=== PATIENT | female | born 1940 | race Caucasian/White ===

== ENCOUNTER 2019-09-13 21:39 | Observation (INO) | payer MEDICARE, SELFPAY ==
--- NOTE | ~2019-09-13 | MR_ITS ---
EXAMINATION: MR brain/brain stem wo/w con DATE: 09/14/2019 13:57 INDICATION: Ataxia. TECHNIQUE: Magnetic resonance imaging (MRI) of the brain and brainstem was performed without and with 18 mL MultiHance intravenous contrast. Sequences included sagittal and axial T1-weighted FSE, axial diffusion-weighted FS EPI, axial T2*-weighted GRE, axial T2-weighted FLAIR Propeller, and axial T2-we ighted Propeller. Postcontrast sequences included axial, sagittal, and coronal T1-weighted FSE. Appar ent diffusion coefficient (ADC) maps were created. COMPARISON: None. FINDINGS: There is an empty sella. There are scattered areas of nonspecific increased T2-weighted s ignal intensity in the cerebral white matter. There is no intracranial hemorrhage or acute ischemic i nfarct. Inferior to right frontal lobe, there is a 10 mm enhancing extra-axial mass. The ventricles a re normal in size. There is mild mucosal thickening in the ethmoid sinuses. The orbits are normal. Th e mastoid air cells are normal. IMPRESSION: 1. 10 mm enhancing extra-axial mass inferior to right frontal lobe, consistent with a meningioma. 2. Moderate nonspecific cerebral white matter disease, which likely represents chronic small vessel i schemic disease. Reviewed, dictated and finalized at location E. IMPRESSION: 1. 10 mm enhancing extra-axial mass inferior to right frontal lobe, consistent with a meningioma. 2. Moderate nonspecific cerebral white matter disease, which likely represents chronic small vessel ischemic disease.
--- NOTE | ~2019-09-13 | CT_ITS ---
EXAMINATION: CTA brain carotid DATE: 09/14/2019 19:16 INDICATION: Ataxia. TECHNIQUE: Computed tomographic angiography (CTA) of the head was performed without and with 100 mL O mnipaque-350 intravenous contrast. CTA of the neck was performed with intravenous contrast. Automated exposure control and iterative reconstruction technique were employed. The dose-length product was 1 715.03 mGy-cm. Maximum intensity projection and volume rendered 3D-reconstructions were created by kwasi beckwith technologist on a separate workstation. COMPARISON: Brain MRI 09/14/2019 FINDINGS: HEAD CTA: There are scattered areas of low attenuation in the cerebral white matter. There is a 10 mm hyperdense extra-axial mass inferior to right frontal lobe. There is no acute ischemic infarct or in tracranial hemorrhage. The ventricles are normal in size. The orbits are normal. There is mild mucosa l thickening in the paranasal sinuses. The mastoid air cells are normal. Right vertebral artery is do minant. There is no significant stenosis of basilar artery or posterior cerebral arteries. There is n o significant stenosis of the intracranial internal carotid arteries or anterior or middle cerebral a rteries. Anterior communicating artery is normal. The posterior communicating arteries are normal. Th ere is no aneurysm. NECK CTA: There is mild scarring at the lung apices. The lungs demonstrate mosaic attenuation, likely small airways disease. There are no pathologically enlarged lymph nodes. There is no significant [place] nosis of the vertebral arteries. There is plaque in the proximal internal carotid arteries. There is 0% stenosis of the proximal right internal carotid artery relative to normal distal artery lumen diam eter (NASCET criteria). There is 4% stenosis of the proximal left internal carotid artery relative to normal distal artery lumen diameter. There is moderate cervical spondylosis. IMPRESSION: 1. 10 mm extra-axial mass inferior to right frontal lobe, consistent with a meningioma. 2. Mild nonspecific cerebral white matter disease, which likely represents chronic small vessel ische amina disease. 3. 0% stenosis of the proximal right internal carotid artery relative to normal distal artery lumen d iameter (NASCET criteria). 4. 4% stenosis of the proximal left internal carotid artery relative to normal distal artery lumen di ameter. Reviewed, dictated and finalized at location A. IMPRESSION: 1. 10 mm extra-axial mass inferior to right frontal lobe, consistent with a men ingioma. 2. Mild nonspecific cerebral white matter disease, which likely represents clinical engineer keke small vessel ischemic disease. 3. 0% stenosis of the proximal right internal carotid artery relative to normal distal artery lumen diameter (NASCET criteria). 4. 4% stenosis of the proximal left internal carotid artery relative to normal distal artery lumen diameter.
--- NOTE | ~2019-09-13 | US_ITS ---
EXAMINATION: US carotid duplex BI DATE: 09/14/2019 10:58 INDICATION: Ataxia. TECHNIQUE: Grayscale, color Doppler, and pulsed Doppler images of the cervical carotid arteries were obtained. The degree of vessel stenosis is placed in one of the following categories: normal, <50%, 5 0-69%, >=70% but less than near-occlusion, near-occlusion, or total occlusion. Note that percent sten osis relative to normal distal artery lumen diameter is indirectly measured from velocity measurement s as described by Washington, et al. Radiology 2003; 229:340-346. COMPARISON: None. FINDINGS: RIGHT: The right common carotid artery (CCA) peak systolic velocity (PSV) is 72 cm/s. The right internal car otid artery (ICA) PSV is 76 cm/s. The right ICA end-diastolic velocity (EDV) is 26 cm/s. The right IC A/CCA PSV ratio is 1.1. Grayscale and color Doppler images yield an estimate of <50% diameter reducti on from plaque in the ICA. There is antegrade flow in the right vertebral artery. LEFT: The left CCA PSV is 85 cm/s. The left ICA PSV is 75 cm/s. The left ICA EDV is 26 cm/s. The left ICA/C CA PSV ratio is 0.9. Grayscale and color Doppler images yield an estimate of <50% diameter reduction from plaque in the ICA. There is antegrade flow in the left vertebral artery. IMPRESSION: 1. <50% stenosis in the right internal carotid artery. 2. <50% stenosis in the left internal carotid artery. Reviewed, dictated and finalized at location E.
--- NOTE | 2019-09-13 21:55 | ADMGEN ---
This patient, Leia Patel, was admitted to 2 Medical Room 243-01 direct admit from [facility] arrived at 2130. Patient/family oriented to hospital policies and general routines including ID bracelet, bed and alarms, visiting hours, pain management, procedures, bathroom and other care routines, personal items, smoking policy, room service/diet, and visiting hours. Valuables list has been completed. Information on how to activate the Rapid Response Team has been discussed. Patient/Family are encouraged to report perceived risks to care and to ask questions if they do not understand what they are told or what they should do.
[2019-09-13 22:00] VITALS: BP 153/74; PULSE 73; RESP 16; TEMP 36.2; O2SAT 94
[2019-09-13 22:12] VITALS: BMI 31.8
[2019-09-13 22:36] VITALS: PULSE 68
[2019-09-13] MEDS: SODIUM CHLORIDE 0.9% IV 1,000 ML 100 ML IV CONT (23:46)
[2019-09-14] VITALS (11 sets, daily range): BP systolic 122–142; BP diastolic 63–77; PULSE 63–74; RESP 16–18; TEMP 36–36.6; O2SAT 94–96
[2019-09-14] MEDS: ACETAMINOPHEN 325 MG TABLET 650 MG PO ×2 (02:17→20:54)
[2019-09-14] MEDS: LEVOTHYROXINE SODIUM 50 MCG TABLET PO (05:38)
[2019-09-14 08:24] LABS: Chloride 105 mmol/L (98-107)
[2019-09-14] MEDS: PANTOPRAZOLE 40 MG TABLET PO ×2 (08:46→16:34)
[2019-09-14] MEDS: OMEGA 3 POLYUNSAT FATTY ACIDS 1 GM CAP PO ×2 (08:46→16:34)
[2019-09-14] MEDS: ATORVASTATIN 20 MG TABLET PO (08:46)
[2019-09-14] MEDS: CHOLECALCIFEROL 1,000 UNIT TABLET 1000 UNITS PO (08:46)
[2019-09-14] MEDS: levETIRAcetam 500 MG TABLET PO (08:46)
--- NOTE | 2019-09-14 08:46 | PM.IMHP ---
H&P: HPI History of Present Illness Chief complaint: Ataxia Narrative: Leia Patel is a 78 year old right-handed female with HLD and seizures here for ataxia. Patient noted her symptoms yesterday morning. Patient was sitting in the chair around 930 in the morning when she noted ataxia when she stood to walk to the bathroom. She states that she was leaning to the right when she was walking to bathroom. She thought she was dehydrated. She did cut the grass the day before. She is also recent diagnosed with the UTI is been on Bactrim for the past 4 days. There has been no other new medications otherwise. She called her family brought her some electrolytes. After consuming the electrolytes, there was no change in her symptoms at which point she presented to the emergency room at outside hospital for evaluation. She denies headaches, vision changes, odynophagia, dysphagia, chest pain, palpitations, shortness of breath, or cough. She does not take aspirin at home. Patient does have sinus symptoms frequently but has not been on any recent sinus medications. She also has been having loose stools due to frequent antibiotics for her UTI and for her recent oral surgery but the loose stools have resolved. No melena, hematochezia. Patient does state that she has chronic left lower extremity weakness due to her hip surgery. In the emergency room, patient was hemodynamically stable. Creatinine was slightly elevated at 1.28 which is above her baseline otherwise lab values were normal. Urinalysis was clear. Troponin x1 was negative. CT of the brain showing no acute findings. Patient was sent to our facility for further evaluation. Review of Systems Review of Systems: All systems reviewed & are unremarkable except as noted in HPI and below PMFSH Past Medical History Medical History Cataract Colon cancer Surgical removal of pre-cancerous lesion; no chemo or XRT GERD (gastroesophageal reflux disease) History of peptic ulcer disease Hyperlipidemia Hypothyroidism Osteoarthritis Seizure Surgical History Surgical History History of bowel resection History of left hip replacement Hx of cholecystectomy Family History Family History Sibling Diabetes mellitus Sibling Hypertension Father Lung cancer COPD (chronic obstructive pulmonary disease) Other Family history of obesity Primary malignant neoplasm of aortic body Social History 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 Full code. She nominates Kristy her daughter to be the individual who would make medical decisions for her if she is unable. Smoking status: Never smoker Alcohol intake: never Substance use: never Substance use type: does not use Gender identity (if verbalized by the patient): Female Sexual Orientation (if Verbalized by the Patient): Straight or Heterosexual Spiritual care concerns: No Meds Home Medications and Allergies Home Medications Medication Instructions Recorded Confirmed Type atorvastatin 20 mg PO DAILY 09/13/19 09/13/19 History cholecalciferol (vitamin D3) 25 mcg PO DAILY 09/13/19 09/13/19 History icosapent ethyl [Vascepa] 1 g PO BID 09/13/19 09/13/19 History levetiracetam 500 mg PO DAILY 09/13/19 09/13/19 History levetiracetam 750 mg PO HS 09/13/19 09/13/19 History levothyroxine 50 mcg PO DAILY 09/13/19 09/13/19 History multivitamin [Daily Multi-Vitamin] 1 tablet PO DAILY 09/13/19 09/13/19 History pantoprazole 40 mg PO BID 09/13/19 09/13/19 History sulfamethoxazole-trimethoprim 80 - 160 tablet PO BID 09/13/19 09/13/19 History Allergies Allergy/AdvReac Type Severity Reaction Status Date / Time No Known Allergies Allergy Verified 09/13/19 22:04 Vital Sign
[2019-09-14] MEDS: ONDANSETRON INJ 4 MG/2 ML VIAL IV PUSH (08:49)
[2019-09-14] MEDS: SODIUM CHLORIDE 0.9% IV 1,000 ML 100 ML IV CONT ×3 (08:49→20:06)
[2019-09-14 09:11] LABS: Anion Gap 12.5 mmol/L (7-16); Blood Urea Nitrogen 15 mg/dL (7-17); Carbon Dioxide 25 mmol/L (22-30); Estimated CRCL calculation 44 ml/min; Estimated Glomerular Filt Rate 48; Glucose 108 mg/dL (65-105); Potassium 4.5 mmol/L (3.4-5.0); Sodium 138 mmol/L (137-145)
[2019-09-14 10:30] LABS: Cholesterol 162 mg/dL (0-200); HDL Direct 34 mg/dL; Triglycerides 366 mg/dL (<150)
[2019-09-14 10:41] LABS: LDL Cholesterol Direct 64 mg/dL
[2019-09-14] MEDS: ASPIRIN 81 MG CHEWABLE TABLET PO (10:56)
--- NOTE | 2019-09-14 15:22 | PCPTNOTE ---
patient walks 350' without device, assist, or LOB which required assist to recover...patient also changed direction 180 degrees... x 2 without LOB or any abnormal sensation...did not observe any ATAXIA with gait, transfers, or movement...patient will be d/c'd from PT
--- NOTE | 2019-09-14 17:04 | WPDNEURCNPN ---
Assessment and Plan Assessment and plan (1) Renal insufficiency: Code(s): N28.9 - Disorder of kidney and ureter, unspecified Status: Acute (2) Ataxia: Code(s): R27.0 - Ataxia, unspecified Status: Acute (3) Hyperlipidemia: Code(s): E78.5 - Hyperlipidemia, unspecified Status: Acute (4) Hypothyroidism: Code(s): E03.9 - Hypothyroidism, unspecified Status: Acute (5) Seizure: Code(s): R56.9 - Unspecified convulsions Status: Acute (6) GERD (gastroesophageal reflux disease): Code(s): K21.9 - Gastro-esophageal reflux disease without esophagitis Status: Acute Additional Plan to complete the workup I have order the echocardiogram with bubble study and also CTA of the brain however I see that she has renal dysfunction than and MRA of the brain and carotid can be performed to make sure we are not missing anything at the spinal continue the aspirin therapy Consult date: 09/14/19 Time Seen: 16:00 HPI: Leia Patel is a 78 year old female who was admitted because of rather sudden onset of ataxia dizziness lightheadedness which has almost resolved and she walked quite a bit without any assistance from the physical therapist she denies any headache nausea vomiting chest pain shortness of breath fever chills sore throat a brain MRI reveals meningioma which I am not sure responsible for patient's symptoms she says that she was dehydrated working outside for 2 hours 1 grass and then developed the ataxia The patient also has a history of having had seizures and is on Keppra however this was not a seizure and it is likely that the patient had seizures related to meningioma if she did have a meningioma at that time I do not have access to any previous MRI performed though Review of Systems Review of Systems: All systems reviewed & are unremarkable except as noted in HPI and below PMFSH Past Medical History Medical History Cataract Colon cancer Surgical removal of pre-cancerous lesion; no chemo or XRT GERD (gastroesophageal reflux disease) History of peptic ulcer disease Hyperlipidemia Hypothyroidism Osteoarthritis Seizure Surgical History Surgical History History of bowel resection History of left hip replacement Hx of cholecystectomy Family History Family History Sibling Diabetes mellitus Sibling Hypertension Father Lung cancer COPD (chronic obstructive pulmonary disease) Other Family history of obesity Primary malignant neoplasm of aortic body Social History 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 Full code. She nominates Kristy her daughter to be the individual who would make medical decisions for her if she is unable. Smoking status: Never smoker Alcohol intake: never Substance use: never Substance use type: does not use Gender identity (if verbalized by the patient): Female Sexual Orientation (if Verbalized by the Patient): Straight or Heterosexual Spiritual care concerns: No Meds Home Medications and Allergies Home Medications Medication Instructions Recorded Confirmed Type atorvastatin 20 mg PO DAILY 09/13/19 09/13/19 History cholecalciferol (vitamin D3) 25 mcg PO DAILY 09/13/19 09/13/19 History icosapent ethyl [Vascepa] 1 g PO BID 09/13/19 09/13/19 History levetiracetam 500 mg PO DAILY 09/13/19 09/13/19 History levetiracetam 750 mg PO HS 09/13/19 09/13/19 History levothyroxine 50 mcg PO DAILY 09/13/19 09/13/19 History multivitamin [Daily Multi-Vitamin] 1 tablet PO DAILY 09/13/19 09/13/19 History pantoprazole 40 mg PO BID 09/13/19 09/13/19 History sulfamethoxazole-trimethoprim 80 - 160 tablet PO BID 09/13/19 09/13/19 History Allergies Allergy/Adv
[2019-09-14] MEDS: levETIRAcetam 250 MG TABLET 750 MG PO (20:53)
[2019-09-14 21:03] LABS: Add Urine Microscopic? YES; Appearance Urine Clear (Clear); Bilirubin Urine Negative (Negative); Blood Urine Negative (Negative); Color Urine Colorless (Yellow); Glucose Urine UA Negative (Negative); Ketones Urine Negative (Negative); Leukocyte Esterase Ur Trace LEU/UL (Negative); Mucus Urine Rare /lpf; Nitrate Urine Negative (Negative); Protein Urine Negative (Negative); RBC Urine 0-2 /hpf (0-2); Specific Grav Ur 1.049 (1.001-1.035); Squamous Epithelial Cell Urine Few /hpf (Few); Urobilinogen Urine Negative mg/dL (<2.0)
[2019-09-15] VITALS (7 sets, daily range): BP systolic 108–125; BP diastolic 57–68; PULSE 59–72; RESP 15–17; TEMP 36.2–36.5; O2SAT 94–96
--- NOTE | 2019-09-15 | ECHO_ITS ---
Patient Info Name: Leia Patel Age: 78 years : 1940 Gender: Female Ht: 67 in Wt: 203 lbs BSA: 2.12 m2 HR: 68 bpm BP: 122 / 68 mmHg Heart Rhythm: Sinus Rhythm Technical Quality: Good Exam Date: 09/15/2019 11:44 AM Exam Location: [facility] Pulmonary Exam Room: 243 Patient Status: Inpatient Admit Date: 09/13/2019 Staff Ordering Physician: Jose Patel MD Banquet Coordinator: Shima Miramontes RDCS Attending Provider: Jermain Heredia MD Referring Physician: Amanda ARELLANO; Exam Type: CA echo doppler w bubble study Study Info Indications - tia Complete two-dimensional, color flow and Doppler transthoracic echocardiogram is performed. Contrast/Agitated Saline Contrast/Ag. Saline: Agitated Saline Amount: 20.00 ml Summary 1. Left ventricular systolic function is normal, estimated at 55-60%. 2. There is no increased left ventricular wall thickness. 3. The left ventricular diastolic function is grade II diastolic dysfunction. 4. Global longitudinal strain is mildly elevated at -14 %. 5. No interatrial shunt with color flow Doppler nor with injection of agitated saline with or without Valsalva. 6. There is mild mitral valve regurgitation. 7. No pulmonary hypertension, estimated pulmonary arterial systolic pressure is 33 mmHg. 8. There is trace tricuspid valve regurgitation. Recommendations * Consider transesophageal echocardiogram if clinically indicated. Left Ventricle Left ventricular chamber dimension is normal. Left ventricular systolic function is normal, estimated at 55-60%. There is no increased left ventricular wall thickness. The left ventricular diastolic function is grade II diastolic dysfunction. Global longitudinal strain is mildly elevated at -14 %. Right Ventricle Right ventricular chamber dimension is normal. Right ventricular systolic function is normal. Left Atria Left atrial chamber dimension is normal. Right Atria Right atrial chamber dimension is mildly enlarged. Atrial Septum No interatrial shunt with color flow Doppler nor with injection of agitated saline with or without Valsalva. Aortic Valve The aortic valve is trileaflet. There is mild aortic valve sclerosis. There is no aortic valve stenosis. There is no aortic valve regurgitation. Pulmonic Valve The pulmonic valve is not well visualized. There is mild pulmonic regurgitation. Mitral Valve The mitral valve has thickened leaflets. There is mild mitral valve regurgitation. The mitral valve annulus is moderately calcified. Tricuspid Valve The tricuspid valve leaflets are normal. There is trace tricuspid valve regurgitation. No pulmonary hypertension, estimated pulmonary arterial systolic pressure is 33 mmHg. Pericardium/Pleural The pericardium appears normal. There is no pericardial effusion. Inferior Vena Cava Normal inferior vena cava with <50% collapse upon inspiration consistent with elevated right atrial pressure, 10 mmHg. Aorta The aortic root size at the sinus of Valsalva is normal. There is mild aortic atherosclerosis. Left Ventricular Outflow Tract Name Value Normal LVOT 2D LVOT Diameter 2.0 cm
[2019-09-15] MEDS: LEVOTHYROXINE SODIUM 50 MCG TABLET PO (06:24)
[2019-09-15] MEDS: SODIUM CHLORIDE 0.9% IV 1,000 ML 100 ML IV CONT (06:25)
--- NOTE | 2019-09-15 09:48 | WPDNEUROPN ---
Progress Note: A&P Assessment and Plan (1) Seizure: Code(s): R56.9 - Unspecified convulsions Status: Acute (2) Ataxia: Code(s): R27.0 - Ataxia, unspecified Status: Acute Additional Plan stable if echo normal then home with copies of test results Review of Systems Review of Systems: All systems reviewed & are unremarkable except as noted in HPI and below Exam Const: General: cooperative, healthy appearing, comfortable and no acute distress Orientation/consciousness: patient oriented x3 Eyes: General: appearance normal, both eyes and all related structures Neck: Neck: full ROM Resp: Effort & Inspection: able to speak in complete sentences Auscultation: clear to auscultation bilaterally Cardio: Rate: regular rate Rhythm: regular rhythm Neuro: General: patient oriented x3 Cranial nerves: Yes CN's II-XII intact bilaterally Cognition (Neuro): normal cognition Motor exam (neuro): 5/5 motor strength present throughout Sensory Exam: normal sensation Coordination: [id number] test normal Extrem: General: normal to inspection Psych: Appearance: grossly normal and well kempt Mental Status: mental status grossly normal Speech and movement: Normal speech and movement present Affect: normal affect Attitude: cooperative Thought process: Normal thought process present Thought content: Yes Normal thought content present Insight: Good insight present (Psych) Judgement: Good judgement present (Psych) Objective Data Vital Signs Vital Signs: Vital Signs - 24 hr 09/14/19 10:00 09/14/19 12:00 09/14/19 14:00 Temperature 36.5 C 36.6 C Pulse Rate 70 74 70 Respiratory Rate 16 16 Blood Pressure 123/70 135/69 Pulse Oximetry 95 94 09/14/19 16:00 09/14/19 18:00 09/14/19 20:00 Temperature 36.3 C L 36.3 C L Pulse Rate 72 67 65 Respiratory Rate 16 16 Blood Pressure 122/67 131/65 Pulse Oximetry 95 95 09/15/19 00:00 09/15/19 04:00 09/15/19 08:00 Temperature 36.4 C 36.4 C Pulse Rate 63 59 L 65 Respiratory Rate 16 16 Blood Pressure 108/58 L 122/68 Pulse Oximetry 96 95 Intake/Output Intake/Output: Intake & Output 09/12/19 09/13/19 09/14/19 09/15/19 23:59 23:59 23:59 23:59 Intake Total 4574 9320 Output Total 1500 2100 Balance 3090 -140 Meds/Results Medications: Active Medications Generic Name Dose Route Start Last Admin Trade Name Moy PRN Reason Stop Dose Admin Acetaminophen 650 mg 09/13/19 22:14 09/14/19 20:54 Tylenol Tablet PO 650 mg Q4H PRN Administration Mild Pain (1-3) or Fever Al Hydrox/Mg Hydrox/Simethicone 30 ml 09/13/19 22:14 Mylanta PO QID PRN Dyspepsia Aspirin 81 mg 09/14/19 09:20 09/14/19 10:56 Aspirin Chewable PO 81 mg DAILY@0800 TAYLOR Administration Atorvastatin Calcium 20 mg 09/14/19 09:00 09/14/19 08:46 Lipitor PO 20 mg DAILY TAYLOR Administration Fish Oil 1 gm 09/14/19 09:00 09/14/19 16:34 Lovaza PO 1 gm BID TAYLOR Administration Sodium Chloride 1,000 mls @ 100 mls/hr 09/13/19 22:15 09/15/19 06:25 Normal Saline Iv IV CONT 100 mls/hr .Q10H TAYLOR Administration Levetiracetam 500 mg 09/14/19 09:00 09/14/19 08:46 Keppra Tablet PO 500 mg DAILY TAYLOR Administration Levetiracetam 750 mg 09/14/19 21:00 09/14/19 20:53 Keppra Tablet PO 750 mg HS TAYLOR Administration Levothyroxine Sodium 50 mcg 09/14/19 06:30 09/15/19 06:24 Synthroid PO 50 mcg DAILY@0630 TAYLOR Administration Multivitamins Therapeutic 1 tablet 09/15/19 09:00 Multivitamins Therapeutic(*Bkc PO DAILY TAYLOR Ondansetron HCl 4 mg 09/13/19 22:14 09/14/19 08:49 Zofran Inj IV PUSH 4 mg Q6H PRN Administration Nausea And Vomiting Pantoprazole Sodium 40 mg 09/14/19 09:00 09/14/19 16:34 Protonix PO 40 mg BID TAYLOR Administration Vitamin D 1,000 unit 09/14/19 09:00 09/14/19 08:46 Vitamin D PO 1,000 unit DAILY TAYLOR Administration Radiolog
[2019-09-15] MEDS: levETIRAcetam 500 MG TABLET PO (09:54)
[2019-09-15] MEDS: MULTIVITAMINS THERAPEUTIC TAB (*BKC) 1 TABLET PO (09:54)
[2019-09-15] MEDS: OMEGA 3 POLYUNSAT FATTY ACIDS 1 GM CAP PO ×2 (09:55→16:48)
[2019-09-15] MEDS: ASPIRIN 81 MG CHEWABLE TABLET PO (09:55)
[2019-09-15] MEDS: CHOLECALCIFEROL 1,000 UNIT TABLET 1000 UNITS PO (09:55)
[2019-09-15] MEDS: PANTOPRAZOLE 40 MG TABLET PO ×2 (09:55→16:48)
[2019-09-15] MEDS: ATORVASTATIN 20 MG TABLET PO (09:55)
[2019-09-15 13:43] LABS: Folic Acid > 20.0 ng/mL (2.76->20)
--- NOTE | 2019-09-15 18:24 | PM.DS ---
DS: Admitting Diagnosis Admitting Diagnosis Admitting Diagnosis: Disorder of kidney and ureter, unspecified DS: Discharge Diagnosis Discharge Diagnosis (1) Ataxia: Code(s): R27.0 - Ataxia, unspecified Status: Acute Assessment and Plan: Patient with acute-onset ataxia. Brain MRI showing 10 mm enhancing extra-axial mass inferior to right frontal lobe, consistent with a meningioma and moderate nonspecific cerebral white matter disease, which likely represents chronic small vessel ischemic disease. CTA head and neck showing no significant stenosis or aneurysm. Echo shownig EF 55-60 with grade II diastolic dysfunction with no shunt. Telemetry showing one brief episode of atrial tachycardia but not consistent with AFlutter. Could be related to dehydration given her mildly worsening renal function. Cr 1.28 at the outside hospital and better here with IV fluids. Could also be related to her Bactrim. UA clear at the outside hospital. TSH, B12, and folate were normal. We started aspirin. Neurology consulted. Symptoms resolved. Plan for home telemetry. (2) Seizure: Code(s): R56.9 - Unspecified convulsions Status: Acute Assessment and Plan: Patient has a history of seizures. Her last seizure was 10 years ago. Her symptoms are usually syncope with incontinence. We continued Keppra. (3) Renal insufficiency: Code(s): N28.9 - Disorder of kidney and ureter, unspecified Status: Acute Assessment and Plan: Creatinine slightly elevated at 1.28 at the outside hospital. Baseline creatinine normally runs 0.9-1. This could be related to dehydration. This could also be related to the Bactrim that she is on. Cr better. Bactrim stopped. She was insturcted to call her doctor if her urinary symptoms return. She also has a prolapsed bladder and is requesting outpatient urology appointment so information about setting up an appointment with Dr Khan was given. (4) Hyperlipidemia: Code(s): E78.5 - Hyperlipidemia, unspecified Status: Acute Assessment and Plan: LFTs normal at outside hospital. We continued atorvastatin. TG 366, TC 162, LED 64 and HDL 34. (5) Hypothyroidism: Code(s): E03.9 - Hypothyroidism, unspecified Status: Acute Assessment and Plan: TSH normal. We continued levothyroxine. (6) GERD (gastroesophageal reflux disease): Code(s): K21.9 - Gastro-esophageal reflux disease without esophagitis Status: Acute Assessment and Plan: stable. We continued Protonix. DS: Summary Hospital Course Reason for hospitalization: 78yo female here for ataxia. Please see H&P for details. Hospital Course: As above Time Spent with Patient Time attestation: Total time spent providing and/or coordinating discharge services:35 minutes Time spent: Greater than 30 minutes Specific discharge activities: Patent seen and examined. Patietn discussion/education. Exam Narrative: Exam Narrative: AF 125/57 65 15 95% Gen -NARD Chest - CTA bilaterally, nml RR CV - RRR S1/S2; Tele as mentioned above Abd - Soft. Nontender. Nondistended. Positive bowel sounds. Ext - no edema. Neuro - Alert and oriented. non focal Psych - Nml mood and affect. Skin - Warm and dry DS: Data Data Completed and Pending Labs on day of discharge: Labs from last 24 hours 09/14/19 09/14/19 20:44 10:08 Vitamin B12 730.0 Folate > 20.0 H Urine Color Colorless Urine Appearance Clear Urine pH 6.0 Ur Specific [place] 1.049 H Urine Protein Negative Urine Glucose (UA) Negative Urine Ketones Negative Ur Blood (Man) Negative Urine Nitrate Negative Urine Bilirubin Negative Urine Urobilinogen Negative Leukocyte Esterase Rfl Trace H Urine RBC 0-2 Urine WBC 4-6 H Ur Squamous Epith Cells Few Urine Mucus Rare Discharge Plan Discharge Attending physician on discharge: Michelle
--- NOTE | 2019-09-16 08:54 | PCCPR ---
On 09/16/19, the student, [Margot Delatorre], provided care and [facility] on this patient. I have reviewed the student's documentation and agree with the findings.
== END 2019-09-15 19:27 | disposition home or self-care (01) ==
PROVIDERS: Psychiatry & Neurology Neurology; Admitting Provider Internal Medicine; PCP Internal Medicine; Visit Provider Internal Medicine
DX: R27.0 Ataxia, unspecified (principal); R56.9 Unspecified convulsions; N28.9 Disorder of kidney and ureter, unspecified; N81.10 Cystocele, unspecified; R42 Dizziness and giddiness; E78.5 Hyperlipidemia, unspecified; E03.9 Hypothyroidism, unspecified; K21.9 Gastro-esophageal reflux disease without esophagitis; Z79.899 Other long term (current) drug therapy; Z85.038 Personal history of other malignant neoplasm of large intestine; Z96.642 Presence of left artificial hip joint
CPT/HCPCS: 36415; 70496; 70498; 70553; 80048; 80061; 81001; 82607; 82746; 84443; 93306; 93880; 96361; 96374; 96375; 97161; 97165; A9270; A9577; G0378; J2405; J7030; Q9967

== ENCOUNTER 2021-09-26 12:43 | Outpatient (CLI) | payer MEDICARE, SELFPAY ==
--- NOTE | ~2021-09-26 | US_ITS ---
US retroperitoneal comp 09/26/2021 13:39 Procedure: Realtime transabdominal ultrasound of the kidneys and bladder. Indication: Chronic cystitis with hematuria Comparison: No prior studies for comparison. Findings: Renal echotexture is normal bilaterally without hydronephrosis, contour deforming mass or r enal calculus. The right kidney measures 11.4 cm and left kidney measures 11.7 cm. There is right dayo al cyst measuring 2.7 cm. Bladder wall appears thickened and irregular measuring up to 7 mm. Impression: 1: Thickened irregular bladder wall, suspicious for cystitis, possibly chronic. Reviewed, dictated and finalized at location A. Impression: 1: Thickened irregular bladder wall, suspicious for cystitis, possibly chronic.
== END 2021-09-26 12:44 | disposition home or self-care (01) ==
LOC: ANHIMG 12:51
PROVIDERS: PCP Internal Medicine; Visit Provider Neurological Surgery
DX: N30.21 Other chronic cystitis with hematuria (principal)
CPT/HCPCS: 76770

== ENCOUNTER 2023-06-14 13:40 | Outpatient (CLI) | payer MEDICARE, SELFPAY ==
--- NOTE | 2023-06-14 14:46 | ECG_ITS ---
SEE SCANNED COPY FOR CONFIRMED REPORT MTDD
[2023-06-14 15:54] LABS: Basophils Absolute Auto 0.1 K/mm3 (0.0-0.1); Basophils Percent Auto 0.7 % (0.2-1.2); Eosinophils Absolute Auto 0.2 K/mm3 (0-0.3); Eosinophils Percent Auto 2.4 % (0-4.4); Hematocrit 44.6 % (37.0-47.0); Hemoglobin 14.3 g/dL (12.0-15.0); Immature Granulocyte Absolute 0.08 K/mm3 (0.00-0.031); Immature Granulocyte Percent A 0.9 % (0-0.5); Lymphocytes Absolute Auto 2.94 K/mm3 (0.9-3.2); Lymphocytes Percent Auto 32.4 % (18.3-44.2); Mean Corpuscular HGB Conc 32.1 g/dl (32-36); Mean Corpuscular Hemoglobin 29.6 pg (26-34); Mean Corpuscular Volume 92.3 fl (80-100); Monocytes Absolute Auto 0.9 K/mm3 (0.1-0.6); Monocytes Percent Auto 9.7 % (2.6-8.5); Neutrophils Absolute Auto 4.9 K/mm3 (1.3-6.7); Neutrophils Percent Auto 53.9 % (45.5-73.1); Platelet Count Result 295 k/mm3 (150-375); Red Blood Count 4.83 M/mm3 (4.2-5.4); Red Cell Distribution Width 12.8 % (11.5-14.5); White Blood Count 9.1 K/mm3 (4.5-10.0)
[2023-06-14 16:07] LABS: Albumin Level 4.7 g/dL (3.5-5.1)
[2023-06-14 16:11] LABS: Anion Gap 5 mmol/L (4-12); Blood Urea Nitrogen 36 mg/dL (7-17); Calcium 9.3 mg/dL (8.4-10.2); Carbon Dioxide 33 mmol/L (22-30); Chloride 99 mmol/L (98-107); Estimated Glomerular Filt Rate 53; Glucose 85 mg/dL (65-110); Potassium 4.6 mmol/L (3.4-5.0); Sodium 137 mmol/L (137-145)
[2023-06-14 17:01] LABS: Urine Cotinine NEGATIVE
== END 2023-06-14 13:41 | disposition home or self-care (01) ==
LOC: ANHSURGERY 13:43
PROVIDERS: Anesthesiology; PCP Family Medicine; Visit Provider Orthopaedic Surgery
DX: M16.11 Unilateral primary osteoarthritis, right hip (principal); I10 Essential (primary) hypertension; Z01.818 Encounter for other preprocedural examination
CPT/HCPCS: 36415; 80048; 80307; 82040; 83036; 85025; 86850; 86900; 86901; 93005

== ENCOUNTER 2023-06-26 14:27 | Inpatient (IN) | payer MEDICARE, SELFPAY ==
[2023-06-14 13:49] VITALS: BMI 34.6
--- NOTE | 2023-06-14 14:16 | PC.NURSE ---
Addendum entered by Chary Nuñez RN 06/14/23 14:24: TAKES METOPROLOL AT HS WILL NOT TAKE MORNING OF SURGERY Original Note: Report to the Outpatient Waiting Room, entrance under the green pavilion located off [facility], at time 0600 on date __06/25/23 . Planned Procedure Time: _729 . Time changes happen often and if your time is changed the preop area will call you the afternoon before. - You and your visitor will be asked to self-screen and do not enter if you have any COVID symptoms. - A mask is optional within the hospital at this time. Patients may have clear liquids (water, carbonated beverages, clear teas, apple juice) until 3 hours prior to surgery( 4:30 AM) with a maximum of 20 ounces. - No food from midnight until time of surgery - Infants may have breast milk until 4 hours before surgery, formula 6 hours prior to surgery. - Children will be allowed to drink immediately following surgery. If applicable, please bring a bottle or sippy cup to assist with drinking. Juice, water, soda, and popsicles are readily available. For infants on formula, please bring formula the day of surgery. Pacifiers are allowed. Take the following medications with a SIP of water the morning of surgery: ____LEVETIRACETAM,LEVOTHYROXINE.METOPROLOL DO NOT STOP ANY OF YOUR OTHER PRESCRIPTION MEDICATIONS PRIOR TO SURGERY ?EXCEPT THE FOLLOWING Medications to discontinue per physician __ASPIRIN,IBUPROFEN,CELECOXIB, PER DR CA. PT WILL CALL . HOLD ALL VITAMINS 3 DAYS PRE OP.LAST DOSE 06/21/23 Please no make-up, nail sami, hairspray, perfume, deodorant, or body powder the day of surgery. No jewelry (including any body piercings) or valuables the day of surgery, leave them at home. Please take a shower or bath the night before, or the morning of, surgery with an antibacterial soap. Wear comfortable, loose fitting clothing. Children are encouraged to wear pajamas. - Jewelry must be removed prior to entering the operating room. Rings and piercings that are not removed may be cut off. - The hospital will not accept responsibility for valuables. - Please leave all valuables, including medications, at home the day of surgery. If you are going home after surgery, a licensed cab driver must drive you home. - NO public transportation without another adult if you receive anesthesia. - We recommend that an adult stay with you for 24 hours following discharge. - We also recommend that you do not drive, make important decision, drink alcoholic beverages, or take any drugs that were not prescribed by your health care provider for at least 24 hours after your discharge time. Follow any additional instructions given to you from your surgeon. If you or anyone in your household have experienced Covid symptoms in the past week, please notify your surgeon or the nurse liaison at the phone number below for possible testing. VERBAL AND WRITTEN instructions given to ___PATIENT and asked if any additional questions and then verbalized understanding. Patient advised to call surgeon office or pre surgery nurse liaison [phone] if any additional questions.
[2023-06-14 14:42] VITALS: BP 141/67; PULSE 69; RESP 18; TEMP 36.7; O2SAT 97
--- NOTE | 2023-06-21 11:50 | PM.IMHP ---
H&P: HPI History of Present Illness Date/Time: 06/21/23 11:50 Chief Complaint: Patient has osteoarthritis right hip. She has been unresponsive to conservative treatment. She would like to have a hip replacement on the right. Review of Systems Musculoskeletal: Musculoskeletal: Reports arthralgias, Reports joint swelling and Reports stiffness PMF Past Medical History Medical History (Updated 06/07/23 @ 14:27 by Anil Richter MD) Cataract Colon cancer Surgical removal of pre-cancerous lesion; no chemo or XRT GERD (gastroesophageal reflux disease) History of peptic ulcer disease Hyperlipidemia Hypothyroidism Osteoarthritis Seizure Tachycardia Surgical History Surgical History (Updated 06/07/23 @ 14:27 by Anil Richter MD) H/O: hysterectomy History of ankle surgery History of bowel resection History of left hip replacement Hx of cholecystectomy Family History Family History Sibling Diabetes mellitus Sibling Hypertension Father Lung cancer COPD (chronic obstructive pulmonary disease) Other Family history of obesity Primary malignant neoplasm of aortic body Social History Social History (Updated 06/07/23 @ 13:58 by Cristy Mendoza CMA) 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 Full code. She nominates Kristy her daughter to be the individual who would make medical decisions for her if she is unable. Smoking status: Never smoker Additional smoking assessment comments: KASANDRA ANY FORM OF TOBACCO USE Alcohol intake: never Substance use: never Substance use type: does not use Do You Feel Safe in your Home?: Yes Lack of Transportation: No Lack of Food: Never True Current Housing: I Have Housing Concerned About Future Housing: No Difficulty Paying Gas/Electric Bills: No Difficulty Paying for Meds: No Currently Unemployed: No Education: Bachelor's Degree Difficulty w/ Childcare or Family Care: No Living arrangements: alone Occupation/Education: retired Gender identity (if verbalized by the patient): Female Sexual Orientation (if Verbalized by the Patient): Straight or Heterosexual Spiritual care concerns: No Meds Home Medications and Allergies Home Medications Medication Instructions Recorded Confirmed Type icosapent ethyl 1 gram capsule 1 g PO BID 09/13/19 06/14/23 History (Vascepa) levetiracetam 500 mg tablet 500 mg PO DAILY 09/13/19 06/14/23 History levothyroxine 50 mcg tablet 50 mcg PO DAILY 09/13/19 06/14/23 History multivitamin (Daily Multi-Vitamin 1 tablet PO DAILY 09/13/19 06/14/23 History tablet) celecoxib 200 mg capsule (Celebrex) 200 mg PO DAILY 06/07/23 06/14/23 History furosemide 20 mg tablet 20 mg PO QAM 06/07/23 06/14/23 History linaclotide 145 mcg capsule 145 mcg PO QAM 06/07/23 06/14/23 History metoprolol succinate 25 mg 25 mg PO HS 06/07/23 06/14/23 History tablet,extended release 24 hr omeprazole 20 mg capsule,delayed 20 mg PO PRN PRN Heartburn 06/07/23 06/14/23 History release aspirin 81 mg tablet,delayed 81 mg PO DAILY 06/14/23 06/14/23 History release (Adult Low Dose Aspirin) atorvastatin 40 mg tablet 40 mg PO HS 06/14/23 06/14/23 History ibuprofen 400 mg tablet 400 mg PO Q6H PRN Pain 06/14/23 06/14/23 History levetiracetam 500 mg tablet 750 mg PO HS 06/14/23 06/14/23 History loratadine 10 mg tablet (Claritin) 10 mg PO DAILY 06/14/23 06/14/23 History Allergies Allergy/AdvReac Type Severity Reaction Status Date / Time No Known Allergies Allergy Verified 06/14/23 13:49 Exam Narrative: Patient has pain with any manipulation of her right hip. She has internal rotation 0 external rotation about 30. She has a positive Stinchfield test. She walks with an antalgic gait. Neurologically she seems to be intact. Eyes: General: appearance normal, both eyes and all related structures Neck:
[2023-06-25] VITALS (31 sets, daily range): BP systolic 104–153; BP diastolic 50–70; PULSE 63–86; RESP 12–22; TEMP 34.4–36.9; O2SAT 12–98; BMI 34.2
--- NOTE | 2023-06-25 06:51 | WPDANESEPPF ---
Anes - Initial Pre Proc Eval Procedure: Operation Date: 06/25/23 07:30 Proposed Procedures p Right Total Hip Arthroplasty - Anil Richter MD Date/Time: 06/25/23 06:51 Surgeon: Anil Richter MD Pre Op Diagnosis: O A Rt Hip Patient Data Age: 82 Gender: F Height: 1.7 m Weight: 100.2 kg Last Vital Signs Temp 36.7 C 06/14/23 14:42 Pulse 69 06/14/23 14:42 Resp 18 06/14/23 14:42 BP 141/67 H 06/14/23 14:42 Pulse Ox 97 06/14/23 14:42 O2 Del Method Room Air 06/14/23 14:42 Allergies Allergy/AdvReac Type Severity Reaction Status Date / Time No Known Allergies Allergy Verified 06/14/23 13:49 Home Medications Medication Instructions Recorded Confirmed Type icosapent ethyl 1 gram capsule 1 g PO BID 09/13/19 06/14/23 History (Vascepa) levetiracetam 500 mg tablet 500 mg PO DAILY 09/13/19 06/14/23 History levothyroxine 50 mcg tablet 50 mcg PO DAILY 09/13/19 06/14/23 History multivitamin (Daily Multi-Vitamin 1 tablet PO DAILY 09/13/19 06/14/23 History tablet) celecoxib 200 mg capsule (Celebrex) 200 mg PO DAILY 06/07/23 06/14/23 History furosemide 20 mg tablet 20 mg PO QAM 06/07/23 06/14/23 History linaclotide 145 mcg capsule 145 mcg PO QAM 06/07/23 06/14/23 History metoprolol succinate 25 mg 25 mg PO HS 06/07/23 06/14/23 History tablet,extended release 24 hr omeprazole 20 mg capsule,delayed 20 mg PO PRN PRN Heartburn 06/07/23 06/14/23 History release aspirin 81 mg tablet,delayed 81 mg PO DAILY 06/14/23 06/14/23 History release (Adult Low Dose Aspirin) atorvastatin 40 mg tablet 40 mg PO HS 06/14/23 06/14/23 History ibuprofen 400 mg tablet 400 mg PO Q6H PRN Pain 06/14/23 06/14/23 History levetiracetam 500 mg tablet 750 mg PO HS 06/14/23 06/14/23 History loratadine 10 mg tablet (Claritin) 10 mg PO DAILY 06/14/23 06/14/23 History rivaroxaban 10 mg tablet (Xarelto) 10 mg PO DAILY PE prophylaxis s/p 06/22/23 Rx joint replacement 21 days #21 tabs Patient hx anesthesia problems: none Family hx anesthesia problems: none Results Review: All pre-operative results and documents have been reviewed as part of the pre-operative evaluation. [facility] Past Medical History Medical History Cataract Colon cancer Surgical removal of pre-cancerous lesion; no chemo or XRT GERD (gastroesophageal reflux disease) History of peptic ulcer disease Hyperlipidemia Hypothyroidism Osteoarthritis Seizure Tachycardia Surgical History Surgical History H/O: hysterectomy History of ankle surgery History of bowel resection History of left hip replacement Hx of cholecystectomy Family History Family History Sibling Diabetes mellitus Sibling Hypertension Father Lung cancer COPD (chronic obstructive pulmonary disease) Other Family history of obesity Primary malignant neoplasm of aortic body Social History 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 Full code. She nominates Kristy her daughter to be the individual who would make medical decisions for her if she is unable. Smoking status: Never smoker Additional smoking assessment comments: KASANDRA ANY FORM OF TOBACCO USE Alcohol intake: never Substance use: never Substance use type: does not use Do You Feel Safe in your Home?: Yes Lack of Transportation: No Lack of Food: Never True Current Housing: I Have Housing Concerned About Future Housing: No Difficulty Paying Gas/Electric Bills: No Difficulty Paying for Meds: No Currently Unemployed: No Education: Bachelor's Degree Difficulty w/ Childcare or Family Care: No Living arrangements: alone Occupation/Education: retired Gender identity (if verbalized by the patient): Fem
[2023-06-25] MEDS: LACTATED RINGERS 1,000 ML 30 ML IV CONT ×2 (06:55→10:40)
--- NOTE | 2023-06-25 06:58 | WPDHPUPDATE1 ---
History and Physical Update Update Date/Time: 06/25/23 06:58 History and Physical has been reviewed, including an updated exam of the patient. There are NO changes in the patient's condition. Risks, benefits, and alternatives have been discussed and questions answered. Patient agrees to proceed with procedure.
[2023-06-25] MEDS: VANCOMYCIN 1,500 MG/NS 500 ML BAG 250 MG IVPB (07:15)
[2023-06-25] MEDS: TRANEXAMIC ACID 1,000MG/ISO100 1,000 MG/100 ML BAG 200 MG IVPB (07:15)
[2023-06-25] MEDS: ACETAMINOPHEN 500 MG TABLET 1000 MG PO (07:20)
[2023-06-25] MEDS: ceFAZolin 2 GM/D5W 50 ML 2 GM/50 ML BAG IVPB ×3 (07:30→23:35)
[2023-06-25] MEDS: BUPIVACAINE/EPINEPHRINE 0.5% 10 ML VIAL 30 ML INFILTRATE (09:18)
--- NOTE | 2023-06-25 09:50 | W.PM.PROC2 ---
Procedure Note - Detailed Date of Procedure 06/25/23 Pre-op Diagnosis Osteoarthritis RIGHT Hip Post-op Diagnosis Same Procedure Performed RIGHT total hip arthroplasty Surgeon Anil Richter MD Anesthesia General Findings Arthritis Description of Procedure Patient was brought to the operating room #9, and an anesthetic was administered. The patient was placed with the LEFT side up and steriley prepped and draped in the usual manner. Longitudinal incision was done, dissection carried down to the fascia. A Hardinge type approach was used and the femoral head was dislocated anteriorly. Femoral head was removed a finger breath above the lesser trochanter. The acetabulum was serially reamed to accept a 54 component. This was impacted into place and secured with 2 25mm screws. A high wall liner was placed. The femur was reamed and broached to accept a 11 component which was impacted into place. A minus 6 head and neck were placed and the hip was put through full range of motion. The hip was noted to be stable. The wounds were then closed in a layered fashion using #5 ethibond, 2 vicryl, 2-0 vicryl and oscar. Patient left the operating room in satisfactory condition. Estimated Blood Loss 600 Drains No Packing No Pathology None sent Complications No immediate complications Condition Stable Disposition PACU [facility] Billing Surgery - Charge Forward: Surgery Billing ([id number] Total Hip)
--- NOTE | 2023-06-25 10:31 | SUR.OPER ---
Seizure precautions/padded side rails on patient stretcher
[2023-06-25] MEDS: fentaNYL CITRATE INJ (*CRX) 100 MCG/2 ML VIAL 25 MCG IV PUSH ×5 (10:54→13:20)
[2023-06-25] MEDS: HYDROmorphone HCL INJ (*CRX) 1 MG/ML SYR IV PUSH ×3 (14:00→22:14)
--- NOTE | 2023-06-25 14:07 | ADMGEN ---
This patient, Leia Patel, was admitted to 3 [facility] Surg Room 300-01. Patient/family oriented to hospital policies and general routines including ID bracelet, bed and alarms, visiting hours, pain management, procedures, bathroom and other care routines, personal items, smoking policy, room service/diet, and visiting hours. Information on how to activate the Rapid Response Team has been discussed. Patient/Family are encouraged to report perceived risks to care and to ask questions if they do not understand what they are told or what they should do.
--- NOTE | 2023-06-25 15:13 | WPDCN ---
Assessment and Plan Assessment and plan (1) Osteoarthritis of right hip: Code(s): M16.11 - Unilateral primary osteoarthritis, right hip Status: Acute Assessment and Plan: Postoperative day 0 status post right total hip arthroplasty. Wound care, pain control, and DVT prophylaxis deferred to primary service. H&H ordered for this evening given 600 mL blood loss. (2) Urinary retention: Code(s): R33.9 - Retention of urine, unspecified Status: Acute Assessment and Plan: Greater than 600 mL in the bladder after using the restroom. Straight cath x 1 and prn bladder scan. (3) Hypothermia associated with surgery: Code(s): T88.8XXA - Other specified complications of surgical and medical care, not elsewhere classified, initial encounter; T68.XXXA - Hypothermia, initial encounter Status: Acute Assessment and Plan: Temperature was 94? F postoperatively, likely related to surgery/anesthesia. Temporarily under a Lucy Hugger with stabilization of temperature, monitor. (4) Seizure disorder: Code(s): G40.909 - Epilepsy, unspecified, not intractable, without status epilepticus Status: Acute Assessment and Plan: Continue levetiracetam. (5) Hypothyroidism: Code(s): E03.9 - Hypothyroidism, unspecified Status: Acute Assessment and Plan: Continue levothyroxine and check TSH. (6) Dyslipidemia: Code(s): E78.5 - Hyperlipidemia, unspecified Status: Acute Assessment and Plan: Resume atorvastatin and icosapent. (7) Gastroesophageal reflux disease: Code(s): K21.9 - Gastro-esophageal reflux disease without esophagitis Status: Acute Assessment and Plan: Continue PPI. Plan Thank you for allowing us to participate in this patient's care. Please do not hesitate to contact us with any questions. HPI Data of Consult Date/Time: 06/25/23 15:30 Requesting Physician: Anil Richter MD Consult Narrative Reason for consult: Medical management Narrative: This is an 82-year-old female with history of osteoarthritis, seizures, dyslipidemia, and hypothyroidism whom the hospitalist service has been consulted for help managing her medical conditions postoperatively. The patient reports right hip pain despite conservative outpatient treatment and she elected for replacement today. Surgery was performed under general anesthesia with no immediate complications documented an estimated blood loss of 600 mL. Postoperatively she was hypothermic with a temperature of 94? F requiring Lucy Hugger for short period of time. Postoperatively she reports dry heaves an ongoing nausea and states she has not had much to eat. Her pain is pretty well controlled. She is having difficulties urinating and is only passing small amounts of urine; reports similar issues with prior surgeries. She denies fever, chills, sweats, vomiting, chest pain, and shortness of breath. She also denies paresthesias, skin color, and temperature changes distal to the surgical site. She lives home alone with her 2 cats. Her 3 daughters are going to rotate helping her out when she returns home. She has no personal or family history of venous thromboembolism. Reports that her chronic medical conditions are well controlled on home medications. Review of Systems Review of Systems: 12 systems were reviewed and are negative except for as per HPI. [facility] Past Medical History Medical History (Updated 06/25/23 @ 21:24 by Kianna Burris PA-C) Colon cancer Surgical removal of pre-cancerous lesion; no chemo or XRT Gastroesophageal reflux disease Hyperlipidemia Hypothyroidism Osteoarthritis Peptic ulcer Seizure disorder Surgical History Surgical History (Updated 06/25/23 @ 15:19 by Kianna Burris PA-C) History of ankle surgery Right ankle ligament repair. History of cholecystectomy History of hysterectomy History of left hip repla
--- NOTE | 2023-06-25 15:15 | PCPTNOTE ---
Attempted PT evaluation. Per RN, pt currently needing Lucy hugger to raise body temperature. Will follow.
[2023-06-25] MEDS: SENNA/DOCUSATE SODIUM TABLET 2 TAB PO (16:23)
[2023-06-25] MEDS: OMEGA 3 POLYUNSAT FATTY ACIDS 1 GM CAP PO (16:23)
[2023-06-25 18:15] LABS: Hemoglobin 12.4 g/dL (12.0-15.0)
[2023-06-25] MEDS: ONDANSETRON INJ 4 MG/2 ML VIAL IV PUSH (20:31)
[2023-06-25] MEDS: ATORVASTATIN 40 MG TABLET PO (20:31)
[2023-06-25] MEDS: METOPROLOL SUCCINATE EXT REL 25 MG TABCR PO (20:31)
[2023-06-25] MEDS: levETIRAcetam 250 MG TABLET 750 MG PO (20:31)
[2023-06-25] MEDS: RIVAROXABAN 10 MG TABLET PO (20:31)
[2023-06-25] MEDS: HYDROcodone/acetaminophen (*CRX) 7.5-325 MG TABLET 1 TAB PO (20:32)
[2023-06-26] VITALS (9 sets, daily range): BP systolic 114–130; BP diastolic 51–60; PULSE 71–93; RESP 14–18; TEMP 36.2–37.3; O2SAT 94–99
--- NOTE | ~2023-06-26 | XR_ITS ---
EXAMINATION: XR surgery orthopedic DATE: 06/25/2023 09:53 INDICATION: Right hip arthroplasty. TECHNIQUE: 2 intraoperative views of the pelvis were obtained. COMPARISON: Pelvis radiograph 06/07/2023 FINDINGS: The first image demonstrates a total left hip arthroplasty in near-anatomic alignment. Ther e is a right acetabular cup in expected position. There is a broach in the proximal right femur. The second image demonstrates a total right hip arthroplasty in near-anatomic alignment. IMPRESSION: 1. Bilateral total hip arthroplasties in near-anatomic alignment. Reviewed, dictated and finalized at location A.
[2023-06-26] MEDS: LEVOTHYROXINE SODIUM 50 MCG TABLET PO (05:43)
[2023-06-26] MEDS: HYDROcodone/acetaminophen (*CRX) 7.5-325 MG TABLET 1 TAB PO ×3 (05:47→13:18)
[2023-06-26 06:13] LABS: Basophils Percent Auto 0.1 % (0.2-1.2); Hematocrit 36.6 % (37.0-47.0); Hemoglobin 11.5 g/dL (12.0-15.0); Immature Granulocyte Percent A 0.7 % (0-0.5); Lymphocytes Absolute Auto 1.72 K/mm3 (0.9-3.2); Lymphocytes Percent Auto 11.4 % (18.3-44.2); Mean Corpuscular HGB Conc 31.4 g/dl (32-36); Mean Corpuscular Hemoglobin 29.4 pg (26-34); Mean Corpuscular Volume 93.6 fl (80-100); Mean Platelet Volume 9.1 fl (7.4-10.4); Monocytes Absolute Auto 1.6 K/mm3 (0.1-0.6); Monocytes Percent Auto 10.7 % (2.6-8.5); Neutrophils Absolute Auto 11.7 K/mm3 (1.3-6.7); Neutrophils Percent Auto 77.1 % (45.5-73.1); Platelet Count Result 225 k/mm3 (150-375); Red Blood Count 3.91 M/mm3 (4.2-5.4); White Blood Count 15.1 K/mm3 (4.5-10.0)
[2023-06-26 06:25] LABS: Alanine Aminotransferase 25 U/L (6-35); Albumin Level 4.2 g/dL (3.5-5.1); Alkaline Phosphatase 71 U/L (38-126); Anion Gap 8 mmol/L (4-12); Aspartate Amino Transferase 54 U/L (14-36); Bilirubin,Total 0.6 mg/dL (0.2-1.3); Blood Urea Nitrogen 21 mg/dL (7-17); Calcium 8.8 mg/dL (8.4-10.2); Carbon Dioxide 25 mmol/L (22-30); Chloride 103 mmol/L (98-107); Estimated CRCL calculation 47 ml/min; Estimated Glomerular Filt Rate 53; Glucose 130 mg/dL (65-110); Magnesium 1.8 mg/dL (1.6-2.3); Potassium 4.4 mmol/L (3.4-5.0); Sodium 136 mmol/L (137-145)
--- NOTE | 2023-06-26 06:52 | PM.PNORT ---
Progress Note: A&P Assessment and Plan (1) History of right hip replacement: Code(s): Z96.641 - Presence of right artificial hip joint Status: Acute Subjective Subjective Date/Time Seen: 06/26/23 06:52 Post Op day: 1 Principal diagnosis: Right Total Hip Review of Systems Musculoskeletal: Musculoskeletal: Reports arthralgias, Reports joint swelling and Reports stiffness Exam Narrative: S/P JUDY. Wiggles toes. Doing well Objective Data Vital Signs Vital Signs: Vital Signs - 24 hr 06/25/23 10:40 06/25/23 10:55 06/25/23 11:05 Temperature 97.1 F L Pulse Rate 86 72 71 Respiratory Rate 18 14 14 Blood Pressure 128/62 124/62 123/62 Pulse Oximetry 97 98 94 Oxygen Delivery Simple Face Mask Simple Face Mask Nasal Cannula Oxygen Flow Rate 6 8 3 06/25/23 11:20 06/25/23 11:35 06/25/23 11:50 Temperature Pulse Rate 71 66 66 Respiratory Rate 14 14 14 Blood Pressure 119/61 104/58 L 118/57 L Pulse Oximetry 93 95 94 Oxygen Delivery Nasal Cannula Nasal Cannula Nasal Cannula Oxygen Flow Rate 3 3 3 06/25/23 12:05 06/25/23 12:20 06/25/23 12:35 Temperature Pulse Rate 67 72 66 Respiratory Rate 18 19 17 Blood Pressure 116/55 L 126/63 121/61 Pulse Oximetry 94 94 95 Oxygen Delivery Nasal Cannula Nasal Cannula Nasal Cannula Oxygen Flow Rate 3 2 2 06/25/23 12:50 06/25/23 13:05 06/25/23 14:17 Temperature Pulse Rate 67 69 Respiratory Rate 18 18 Blood Pressure 128/66 126/60 Pulse Oximetry 96 96 93 Oxygen Delivery Nasal Cannula Room Air Nasal Cannula Oxygen Flow Rate 2 3 06/25/23 14:15 06/25/23 13:24 06/25/23 14:43 Temperature 96.3 F L 94.0 F L 97.3 F L Pulse Rate 80 Respiratory Rate 22 H Blood Pressure 114/59 L Pulse Oximetry 93 Oxygen Delivery Oxygen Flow Rate 06/25/23 14:19 06/25/23 14:32 06/25/23 13:41 Temperature 97.4 F L 97.3 F L 95.9 F L Pulse Rate 69 Respiratory Rate 20 Blood Pressure 110/51 L Pulse Oximetry 12 L Oxygen Delivery Oxygen Flow Rate 06/25/23 14:10 06/25/23 14:35 06/25/23 14:59 Temperature 97.4 F L 97.3 F L 97.9 F Pulse Rate 67 74 Respiratory Rate 12 14 Blood Pressure 110/51 L 122/55 L Pulse Oximetry 92 93 Oxygen Delivery Oxygen Flow Rate 06/25/23 15:06 06/25/23 15:18 06/25/23 15:59 Temperature 97.3 F L 97.4 F L 98.1 F Pulse Rate Respiratory Rate Blood Pressure Pulse Oximetry Oxygen Delivery Oxygen Flow Rate 06/25/23 16:27 06/25/23 16:50 06/25/23 16:00 Temperature 97.6 F 97.6 F 97.9 F Pulse Rate 73 Respiratory Rate 20 Blood Pressure 113/51 L Pulse Oximetry 93 Oxygen Delivery Oxygen Flow Rate 06/25/23 20:01 06/25/23 20:31 06/25/23 23:19 Temperature 98.5 F 98.3 F Pulse Rate 73 63 77 Respiratory Rate 18 16 Blood Pressure 124/62 113/50 L Pulse Oximetry 94 93 Oxygen Delivery Oxygen Flow Rate 06/26/23 03:39 Temperature 99.2 F Pulse Rate 78 Respiratory Rate 17 Blood Pressure 114/56 L Pulse Oximetry 95 Oxygen Delivery Oxygen Flow Rate Intake/Output Intake/Output: Intake & Output 06/23/23 06/24/23 06/25/23 06/26/23 23:59 23:59 23:59 23:59 Intake Total 1200 50 Output Total 475 0 Balance 725 50 Meds/Results Medications: Active Medications Generic Name Dose Route Start Last Admin Trade Name Freq PRN Reason Stop Dose Admin Hydrocodone Bitart/Acetaminophen 1 tab 06/25/23 13:21 Hydrocodone/Acetaminophen (*Crx) 5-325 Mg Tablet PO Q4H PRN Pain Rated 4-6 Hydrocodone Bitart/Acetaminophen 1 tab 06/25/23 13:21 06/26/23 05:47 Hydrocodone/Acetaminophen (*Crx) 7.5-325 Mg Tablet PO 1 tab Q4H PRN Administration Pain Rated 7-10 Aspirin 81 mg 06/26/23 09:00 Aspirin 81 Mg Enteric Tablet PO DAILY TAYLOR Atorvastatin Calcium 40 mg 06/25/23 21:00 06/25/23 20:31 Atorvastatin 40 Mg Tablet PO 40 mg HS TAYLOR Administration Celecoxib 200 mg 06/26/23 09:00 Celecoxib 200 M
--- NOTE | 2023-06-26 08:04 | WPDANESPN ---
Anes - Prog Note Post-Op Date/Time: 06/26/23 08:04 Cardiovascular status: normal Respiratory status: normal Airway patency: baseline Mental status: baseline Post-Op hydration status: normal Vital Signs: Last Vital Signs Temp 37.3 C 06/26/23 03:39 Pulse 78 06/26/23 03:39 Resp 17 06/26/23 03:39 BP 114/56 L 06/26/23 03:39 Pulse Ox 95 06/26/23 03:39 O2 Del Method Nasal Cannula 06/25/23 14:17 O2 Flow Rate 3 06/25/23 14:17 Pain Score (VAS): 2 I/O: Intake & Output 06/25/23 06/26/23 06/26/23 23:59 07:59 15:59 Intake Total 600 50 Output Total 475 0 Balance 125 50 Laboratory Tests 06/26/23 05:39 06/26/23 05:39 06/25/23 06/26/23 18:08 05:39 WBC 15.1 H RBC 3.91 L Hgb 12.4 11.5 L Hct 38.0 36.6 L MCV 93.6 MCH 29.4 MCHC 31.4 L RDW 13.0 Plt Count 225 MPV 9.1 Immature Gran % (Auto) 0.7 H Neut % (Auto) 77.1 H Lymph % (Auto) 11.4 L [place] % (Auto) 10.7 H Eos % (Auto) 0.0 Baso % (Auto) 0.1 L Lymph # (Auto) 1.72 [place] # (Auto) 1.6 H Eos # (Auto) 0.0 Baso # (Auto) 0.0 Abs Immat Gran (auto) 0.10 H Absolute Neuts (auto) 11.7 H Absolute Nucleated RBC 0.000 Nucleated RBC % 0.0 Sodium 136 L Potassium 4.4 Chloride 103 Carbon Dioxide 25 Anion Gap 8 BUN 21 H D Creatinine 1.00 Estim Creat Clear Calc 47 Estimated GFR 53 L Glucose 130 H Calcium 8.8 Magnesium 1.8 Total Bilirubin 0.6 Direct Bilirubin 0.0 AST 54 H ALT 25 Alkaline Phosphatase 71 Total Protein 7.0 Albumin 4.2 TSH (Reflex) Pending Post-procedural complaints: none Patient Feedback: Patient satisfied with anesthetic care.
[2023-06-26] MEDS: CELECOXIB 200 MG CAPSULE PO (09:27)
[2023-06-26] MEDS: PANTOPRAZOLE 40 MG TABLET PO (09:28)
[2023-06-26] MEDS: SENNA/DOCUSATE SODIUM TABLET 2 TAB PO ×2 (09:28→16:32)
[2023-06-26] MEDS: FUROSEMIDE 20 MG TABLET PO (09:28)
[2023-06-26] MEDS: ceFAZolin 2 GM/D5W 50 ML 2 GM/50 ML BAG IVPB (09:28)
[2023-06-26] MEDS: levETIRAcetam 500 MG TABLET PO (09:28)
[2023-06-26] MEDS: polyethylene glycoL 3350 17 GM POWD.PACK PO (09:30)
--- NOTE | 2023-06-26 12:44 | PM.IMPN ---
Progress Note: A&P Assessment and Plan (1) Osteoarthritis of right hip: Code(s): M16.11 - Unilateral primary osteoarthritis, right hip Status: Acute Assessment and Plan: Postoperative day 0 status post right total hip arthroplasty. Wound care, pain control, and DVT prophylaxis deferred to primary service. H&H ordered for this evening given 600 mL blood loss. (2) Urinary retention: Code(s): R33.9 - Retention of urine, unspecified Status: Acute Assessment and Plan: Greater than 600 mL in the bladder after using the restroom. Straight cath x 1 and prn bladder scan. 06/25: Continued retention even after voiding >500 Placed a indwelling catheter Will need bladder trials prior to discharge follows with urology o/p for previous HX of retention flomax added (3) Hypothermia associated with surgery: Code(s): T88.8XXA - Other specified complications of surgical and medical care, not elsewhere classified, initial encounter; T68.XXXA - Hypothermia, initial encounter Status: Acute Assessment and Plan: RESOLVED Temperature was 94? F postoperatively, likely related to surgery/anesthesia. Temporarily under a Lucy Hugger with stabilization of temperature, monitor. (4) Seizure disorder: Code(s): G40.909 - Epilepsy, unspecified, not intractable, without status epilepticus Status: Acute Assessment and Plan: Continue levetiracetam. (5) Hypothyroidism: Code(s): E03.9 - Hypothyroidism, unspecified Status: Acute Assessment and Plan: Continue levothyroxine and check TSH. (6) Dyslipidemia: Code(s): E78.5 - Hyperlipidemia, unspecified Status: Acute Assessment and Plan: Resume atorvastatin and icosapent. (7) Gastroesophageal reflux disease: Code(s): K21.9 - Gastro-esophageal reflux disease without esophagitis Status: Acute Assessment and Plan: Continue PPI. Plan Thank you for allowing us to participate in this patient's care. Please do not hesitate to contact us with any questions. Time Spent With Patient Time with patient: less than 15 minutes Subjective Date/time seen: 06/26/23 12:44 Interval history: 06/25: Patient continued to have urinary retention today, reports she has previous HX of retention and follows with a urologist. Patient was straight cath last night, continues to retain placed a catheter while hospitalized will attempt bladder trials prior to discharge. Review of Systems Review of Systems: 12 systems were reviewed and are negative except for as per HPI. All systems reviewed & are unremarkable except as noted in HPI and below Exam Narrative: General: Well-developed female in no acute distress. In mild distress due to difficulties urinating HEENT: PERRL, EOMI. Sclera anicteric. Tacky mucous membranes. Neck: Supple. Respiratory: Lungs are clear to auscultation bilaterally. Cardiovascular: Regular rate and rhythm with S1-S2. Gastrointestinal: Abdomen is soft, obese, and nontender with positive bowel sounds. Bladder feels enlarged. Skin: Warm and dry. Generalized pallor. Extremities: No cyanosis, clubbing, or edema. Radial and pedal pulses intact. Musculoskeletal: Right hip dressing is clean, dry, and intact. She is neurovascularly intact distal to the surgical site. Neurological: Alert. Cranial nerves 2-12 are grossly intact. Speech is clear. No facial asymmetry. No gross focal deficits to casual conversation. Psychiatric: Pleasant and cooperative with normal mood and affect. Judgment and insight intact. Objective Data Vital Signs Vital Signs: Vital Signs - 24 hr 06/25/23 12:50 06/25/23 13:05 06/25/23 14:17 Temperature Pulse Rate 67 69 Respiratory Rate 18 18 Blood Pressure 128/66 126/60 Pulse Oximetry 96 96 93 Oxygen Delivery Nasal Cannula Room Air Nasal Cannula Oxygen Flow Rate 2 3 Fraction of Inspired Oxygen
--- NOTE | 2023-06-26 12:56 | PC.NURSE ---
this RN planning to put perez catheter in patient. before perez was placed the pt had an incontinent void, and sat on the commode voiding another 300+ mLs. This RN called the provider. At this time the provider would like to cancel the perez order and continue to bladder scan post void.
[2023-06-26] MEDS: TAMSULOSIN HCL 0.4 MG CAPSULE PO (13:18)
[2023-06-26] MEDS: RIVAROXABAN 10 MG TABLET PO (16:32)
[2023-06-26] MEDS: ATORVASTATIN 40 MG TABLET PO (20:39)
[2023-06-26] MEDS: levETIRAcetam 250 MG TABLET 750 MG PO (20:39)
[2023-06-26] MEDS: METOPROLOL SUCCINATE EXT REL 25 MG TABCR PO (20:40)
[2023-06-26] MEDS: HYDROcodone/acetaminophen (*CRX) 5-325 MG TABLET 1 TAB PO (20:40)
[2023-06-27 00:20] VITALS: BP 129/58; PULSE 75; RESP 12; TEMP 36.4; O2SAT 95
[2023-06-27 04:59] VITALS: BP 114/55; PULSE 71; RESP 13; TEMP 36.3; O2SAT 96
[2023-06-27] MEDS: LEVOTHYROXINE SODIUM 50 MCG TABLET PO (06:30)
[2023-06-27] MEDS: HYDROcodone/acetaminophen (*CRX) 5-325 MG TABLET 1 TAB PO ×2 (06:38→14:26)
[2023-06-27] MEDS: SENNA/DOCUSATE SODIUM TABLET 2 TAB PO (09:05)
[2023-06-27] MEDS: PANTOPRAZOLE 40 MG TABLET PO (09:05)
[2023-06-27] MEDS: LORATADINE 10 MG TABLET PO (09:05)
[2023-06-27] MEDS: TAMSULOSIN HCL 0.4 MG CAPSULE PO (09:05)
[2023-06-27] MEDS: levETIRAcetam 500 MG TABLET PO (09:05)
[2023-06-27] MEDS: CELECOXIB 200 MG CAPSULE PO (09:05)
[2023-06-27] MEDS: FUROSEMIDE 20 MG TABLET PO (09:05)
[2023-06-27] MEDS: polyethylene glycoL 3350 17 GM POWD.PACK PO (09:05)
[2023-06-27] MEDS: OMEGA 3 POLYUNSAT FATTY ACIDS 1 GM CAP PO (09:05)
[2023-06-27] MEDS: ASPIRIN 81 MG ENTERIC TABLET PO (09:05)
[2023-06-27 14:00] VITALS: BP 121/55; PULSE 82; RESP 18; TEMP 36.5; O2SAT 93
--- NOTE | 2023-06-27 14:56 | PM.DS ---
DS: Admitting Diagnosis Discharge Date 06/27/2023 Admitting Diagnosis Osteoarthritis Right Hip DS: Discharge Diagnosis Discharge Diagnosis (1) History of right hip replacement: Code(s): Z96.641 - Presence of right artificial hip joint Status: Acute Plan RIGHT Total Hip for Osteoarthritis DS: Summary Hospital Course Hospital Course: Patient progressed slowly post up due to age and weight. Is putting more weight on it and can ambulate now. Will dismiss to rehab. Status at Discharge Functional status at discharge: uses cane/walker Time Spent with Patient Time attestation: Total time spent providing and/or coordinating discharge services: Exam Narrative: NVI. Wound-A Const: General: comfortable Eyes: General: appearance normal, both eyes and all related structures Resp: Effort & Inspection: normal respiratory effort Cardio: Rate: regular rate Rhythm: regular rhythm DS: Data Data Completed and Pending Labs on day of discharge: Labs from last 24 hours 06/26/23 05:39 WBC 15.1 H RBC 3.91 L Hgb 11.5 L Hct 36.6 L MCV 93.6 MCH 29.4 MCHC 31.4 L RDW 13.0 Plt Count 225 MPV 9.1 Immature Gran % (Auto) 0.7 H Neut % (Auto) 77.1 H Lymph % (Auto) 11.4 L [place] % (Auto) 10.7 H Eos % (Auto) 0.0 Baso % (Auto) 0.1 L Lymph # (Auto) 1.72 [place] # (Auto) 1.6 H Eos # (Auto) 0.0 Baso # (Auto) 0.0 Abs Immat Gran (auto) 0.10 H Absolute Neuts (auto) 11.7 H Absolute Nucleated RBC 0.000 Nucleated RBC % 0.0 Sodium 136 L Potassium 4.4 Chloride 103 Carbon Dioxide 25 Anion Gap 8 BUN 21 H D Creatinine 1.00 Estim Creat Clear Calc 47 Estimated GFR 53 L Glucose 130 H Calcium 8.8 Magnesium 1.8 Total Bilirubin 0.6 Direct Bilirubin 0.0 AST 54 H ALT 25 Alkaline Phosphatase 71 Total Protein 7.0 Albumin 4.2 TSH (Reflex) 1.190 Discharge Plan Discharge Attending physician on discharge: Anil Richter Consulting providers: Rani Orozco Discharging Clinician: Anil Richter Anticipated Discharge Date/Time: 06/27/23 16:59 Patient Disposition: Home Health Service Activity: no straining Diet: as tolerated Discharge Instructions: Per Care Coordination. Patient to have Rober for RN/PT/OT eval and treat [phone]. They will contact patient to schedule first visit. Patient Instructions: Antibiotic Form Stand Alone Forms: General Discharge Information Follow-up/Referrals: Anil Richter MD [Physician] - Discharge Medications: New hydrocodone-acetaminophen 7.5-325 mg tablet 1 tablet PO Q4H PRN (Reason: pain) Qty: 40 0RF doxycycline hyclate 100 mg tablet 100 mg PO DAILY Qty: 10 0RF cyclobenzaprine 10 mg tablet 10 mg PO HS PRN (Reason: muscle spasm) Qty: 20 0RF Continued celecoxib [Celebrex] 200 mg capsule 200 mg PO DAILY furosemide 20 mg tablet 20 mg PO QAM linaclotide 145 mcg capsule 145 mcg PO QAM metoprolol succinate 25 mg tablet extended release 24 hr 25 mg PO HS omeprazole 20 mg capsule,delayed release(DR/EC) 20 mg PO PRN PRN (Reason: Heartburn) levetiracetam 500 mg tablet 500 mg PO DAILY Rx Instructions: PT TAKES 500MG EVERY AM levothyroxine 50 mcg tablet 50 mcg PO DAILY multivitamin [Daily Multi-Vitamin] Tablet 1 tablet PO DAILY icosapent ethyl [Vascepa] 1 gram capsule 1 g PO BID atorvastatin 40 mg tablet 40 mg PO HS levetiracetam 500 mg tablet 750 mg PO HS loratadine [Claritin] 10 mg Tablet 10 mg PO DAILY aspirin [Adult Low Dose Aspirin] 81 mg Tablet,Delayed Release (Dr/Ec) 81 mg PO DAILY Xarelto 10 mg tablet 10 mg PO DAILY 21 Days Qty: 21 0RF Rx Instructions: take 1 tab daily x 21 days beginning day AFTER surgery Discontinued ibuprofen 400 mg Tablet 400 mg PO Q6H PRN (Reason: Pain) Date of admission: 06/26/23 14:27 Primary Care Provider: Socrates
== END 2023-06-27 15:41 | DRG 470 ==
LOC: ANHSURGERY 16:24 → ANH3MEDSUR 16:24
PROVIDERS: Physician Assistant; Admitting Provider Orthopaedic Surgery; PCP Family Medicine; Visit Provider Orthopaedic Surgery
PROC: 0SR90JA Replacement of Right Hip Joint with Synthetic Substitute, Uncemented, Open Approach (ICD-10-PCS; CPT 27130; principal; 2023-06-25 07:30)
DX: M16.11 Unilateral primary osteoarthritis, right hip (principal); K21.9 Gastro-esophageal reflux disease without esophagitis; E03.9 Hypothyroidism, unspecified; E78.5 Hyperlipidemia, unspecified; T88.8XXA Other specified complications of surgical and medical care, not elsewhere classified, initial encounter; R68.0 Hypothermia, not associated with low environmental temperature; G40.909 Epilepsy, unspecified, not intractable, without status epilepticus; Z96.642 Presence of left artificial hip joint; Z87.11 Personal history of peptic ulcer disease; Z85.038 Personal history of other malignant neoplasm of large intestine; Z90.49 Acquired absence of other specified parts of digestive tract; Z90.710 Acquired absence of both cervix and uterus; E66.9 Obesity, unspecified; Z68.36 Body mass index [BMI] 36.0-36.9, adult; R33.9 Retention of urine, unspecified
CPT/HCPCS: 36415; 80048; 80076; 83735; 84443; 85014; 85018; 85025; 97110; 97116; 97161; 97165; 97530; 97535; 99199; A9270; C1713; C1776; J0171; J0330; J0690; J1100; J1170; J1596; J2371; J2405; J2704; J3010; J3370; J7120